=== PATIENT | female | born 1980 | race Caucasian/White ===

== ENCOUNTER 2024-11-26 18:11 | Emergency (ER) | payer OTHER, SELFPAY ==
--- OUTSIDE RECORDS SUMMARY | 2024-11-26 18:13 | XMS_ITS | Clinical Summary ---
Author Organization [facility] [address] [place] [id number] Care Team Providers Care Seaming Machine Operator Name Role Phone Ferdinand Wiggins MD Primary Care Provider Leonid Lazar MD Unavailable [phone] Allergies Active Allergy Reactions Criticality Noted Date Comments Erythromycin Hives Medium 12/02/2018 Medications acetaminophen (TYLENOL) 500 mg tablet Take 500 mg by mouth every 6 (six) hours as needed for pain Active cetirizine (ZyrTEC) 10 mg tablet Take 10 mg by mouth 2 (two) times a day Active pantoprazole DR (PROTONIX) 40 mg EC tablet Take 1 tablet (40 mg total) by mouth daily 30 tablet 2 01/31/2020 Active ibuprofen (ADVIL,MOTRIN) 600 mg tablet Take 1 tablet (600 mg total) by mouth every 6 (six) hours as needed for pain Take with food. 20 tablet 05/13/2020 Active Active Problems Problem Noted Date Diagnosed Date Gastroesophageal reflux disease 01/31/2020 Overview (01/31/2020): Added automatically from request for surgery [id number] GERD (gastroesophageal reflux disease) 0 Assessment & Plan (01/31/2020 3:59 PM DETACHER): -Stop famotidine. Start pantoprazole 40mg daily. Use TUMS prn for breakthrough symptoms. -Discussed GERD diet and given handout on this to follow. -Will schedule EGD Assessment & Plan (12/01/2019 3:23 PM CDT): - onset in early high school - currently on pepcid 20 mg BID at this time - heart burn is getting worse lately despite using - she has been using peptobismol and tums several times a week on top of this for the past 6 month - last endoscopy was back in [id number] which apparently did not show abnormal fidnings - never travelled outside the country - exacerbated with certain types of foods - she drinks a lot of sweet tea and soda caffine containing - taken NSAID - ibuprofen 800mg 2 tablets 3 times a day Hx of gout 12/01/2019 Assessment & Plan (12/01/2019 3:09 PM CDT): - back in year 2000, she had a foot pain - no other flare ups since then Seasonal allergies 12/01/2019 Assessment & Plan (12/01/2019 3:08 PM CDT): - currently on Zyrtec 10mg twice daily - works well for her Status post cholecystectomy 12/01/2019 Assessment & Plan (12/01/2019 3:11 PM CDT): - cholecystectomy in 2008, after having stones DDD (degenerative disc disease), lumbar 12/01/19 Assessment & Plan (12/01/2019 3:38 PM CDT): - hx of bulging disc in L4-L5, degenerative disc disease - she was then sent to pain management, s/p ablations and steroid injections in back - she has not been seen since 2016 - patient to bring back records of MRI and pain management - she was in the she had a fall and a traumatic experience which is what though to be the cause - uses tylenol and ibuprofen for pain control - unfortunately she is using a lot of NSAIDs on a daily basis for the last days - she uses about 3000 mg of tylenol on average, and 5000 mg of tylenol on painful days Class 2 obesity due to exces s calories without serious comorbidity with body mass index (BMI) of 36.0 to 36.9 in adult 12/01/2019 Encounter for long-term (current) use of NSAIDs 12/01/2019 Assessment & Plan (01/31/2020 3:54 PM DETACHER): -Reduce amount of NSAID's used. -Pt says she has an appointment with pain management in the near future. Claustrophobia 12/01/2019 Assessment & Plan (12/01/2019 3:32 PM CDT): - has claustrophobia, having a very hard time with wearing her masks, face covers Resolved Problems Problem Noted Date Diagnosed Date Resolved Date Class 2 obesity due to exces s calories without serious comorbidity with body mass index (BMI) of 36.0 to 36.9 in adult 01/31/2020 Immunizations Immunization Administration Dates Next Due Influenza, Unspecified 12/01/2019(Deferr ed: Patient Refused),12/15/2018(Deferred: Patient Refused) Surgical History Surgery Date Site/Laterality Comments HYSTERECTOMY 03/17/2019 - 03/16/2020 polyp, endometriosis CHOLECYSTECTOMY 03/17/2008 - 03/16/2009 TUBAL LIGATION 03/17/2004 - 03/16/2005 Medical History Medical History Date Comments Allergic Gout 2000 GERD (gastroesophageal reflux disease) Family History Medical History Relation Name Comments Hyperlipidemia Father Breast cancer Maternal Great-Grandmother Hypertension Mother Breast cancer Mother's Sister Bone cancer Paternal Grandfather Lung cancer Paternal Grandfather No Known Problems Sister Relation Name Status Comments Father Alive Maternal Great-Grandmother Mother Alive Mother's Sister Paternal Grandfather Sister Alive Social History Tobacco Use Types Packs/Day Years Used Date Smoking Tobacco: Former Cigarettes 0.1 2 0 03/17/2002 - 03/17/2004 Smokeless Tobacco: Never Alcohol Use Standard Drinks/Week Comments Yes 0 (1 standard drink = 0.6 oz pur e alcohol) social AUDIT-C Answer Date Recorded Q1: How often do you have a drink containing alc ohol? 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 Not on file Not on file Not on fi le Obstetrics History Para Term AB IAB SAB Ectopic Multiple Livin g Live Births 3 3 3 Date Outcome GA Total Labor Labor/2nd/3rd Weight Sex Type Anes PTL Zenaida A1 A5 Name Clin Term Term Term Last Filed Vital Signs Vital Sign Reading Time Taken Comments Blood Pressure 124/85 05/13/2020 10:15 PM DETACHER Pulse 80 05/14/2020 12:00 AM DETACHER Temperature 36.6 C (97.8 F) 05/13/2020 10:11 PM DETACHER Respiratory Rate 18 05/13/2020 10:11 PM DETACHER Oxygen Saturation 98% 05/14/2020 12:00 AM DETACHER Inhaled Oxygen Concentration - - Weight 90.7 kg (200 lb) 05/13/2020 10:11 PM DETACHER Height 172.7 cm (5' 8) 05/13/2020 10:11 PM DETACHER Body Mass Index 30.41 05/13/2020 10:11 PM DETACHER Plan of Treatment Not on file Insurance [facility] H[facility]PPO Address: [facility] [address] [place] [address] [employer] H[facility]/PPO Address: [place] [address] Advance Directives For more information, please contact: [phone] * Full Code (Latest Code Status on File) Date Activated Date Inactivated Comments 02/14/2020 8:15 AM 02/14/2020 1:56 PM * Full Code Date Activated Date Inactivated Comments 02/14/2020 8:15 AM 02/14/2020 8:15 AM Care Teams Seaming Machine Operator Relationship Specialty Start Date End Date Ferdinand Wiggins MD PCP - General Family Medicine 12/01/19 Leonid Lazar MD Referring Physician Obstetrics and Gynecology 12/01/19
[2024-11-26 18:17] VITALS: BP 131/93; PULSE 87; RESP 16; TEMP 36.5; O2SAT 100
--- NOTE | 2024-11-26 18:25 | ED.GENADULT ---
HPI - General Adult General Chief complaint: Skin/Abscess/Foreign Body Stated complaint: right side face swelling Time Seen by Provider: 11/26/24 18:25 Source: patient Mode of arrival: ambulatory History of Present Illness HPI narrative: 44-year-old female presented for complaint of right facial swelling. Onset this morning. Denies any associated dental pain but states she has poor dentition throughout and broken teeth. says the swelling has improved. Took Benadryl as she was concerned for an allergic reaction. Denies lip, tongue, or throat swelling, shortness of breath or wheezing. Denies changes to soap, detergent, lotion, or any other exposures. Related Data Allergies Allergy/AdvReac Type Severity Reaction Status Date / Time erythromycin base Allergy Unknown HIVES, DRY Verified 11/26/24 18:21 DIPIKA Review of Systems Review of Systems: CONSTITUTIONAL: Denies body aches, fever, chills ENT: Denies rhinorrhea, congestion, sore throat, or otalgia. Reports facial swelling CARDIOVASCULAR: Denies chest pain, palpitations RESPIRATORY: Denies cough or dyspnea. SKIN: Denies rash, itching, or wounds. MUSCULOSKELETAL: Denies myalgia. NEUROLOGIC: Denies headache, numbness, tingling, or weakness. PMFSH Comments At time of signature, I have reviewed and agree with nursing past medical, surgical, social and family history unless otherwise noted. Please see nursing chart for further information. There is no relevant family history pertinent to the presenting complaint Exam Narrative: GENERAL: well-appearing, no acute distress. HEAD: Normocephalic, atraumatic. EYES: EOMI. No redness or drainage. Conjunctivae normal. ENT: mild Right facial swelling to cheek, no erythema or warmth. mildly tender with palpation to the right maxillary sinus area. dental abscess location of #4, nontender, no gum swelling. poor dentition throughout with multiple broken teeth. Mucous membranes pink and moist. TMs normal bilaterally. Throat normal. Uvula midline. NECK: Normal AROM. No lymphadenopathy. CHEST: No respiratory distress. Clear to auscultation. HEART: Regular rate and rhythm. No murmur appreciated. SKIN: Warm, dry, no rash. Normal skin turgor. NEURO: No focal deficits. Alert and oriented x3. Gait steady. Course Course Emergency Course: Patient is aware of diagnosis, understands and agrees to treatment plan. Anticipatory guidance given. Patient agrees to follow-up as directed and is aware of reasons to seek care at the emergency department. Portions of this record may have been created with voice recognition software Level of Care: Express Care Visit Vital Signs Vital signs: Vital Signs Temperature 97.7 F 11/26/24 18:17 Pulse Rate 87 11/26/24 18:17 Respiratory Rate 16 11/26/24 18:17 Blood Pressure 131/93 H 11/26/24 18:17 Pulse Oximetry 100 11/26/24 18:17 Oxygen Delivery Room Air 11/26/24 18:17 Temperature 97.7 F 11/26/24 18:17 Pulse Rate 87 11/26/24 18:17 Respiratory Rate 16 11/26/24 18:17 Blood Pressure 131/93 H 11/26/24 18:17 Pulse Oximetry 100 11/26/24 18:17 Oxygen Delivery Room Air 11/26/24 18:17 Medical Decision Making MDM Narrative Medical decision making narrative: Discussed physical exam findings c/w dental abscess. Advised supportive measures and signs/symptoms to go to the ER. Pt is appropriate for outpt treatment and f/u. Differential Diagnosis Differential Diagnosis: dentalgia, dental abscess, cellulitis, allergic reaction Vital Signs Vital Signs: Vital Signs Temperature 97.7 F 11/26/24 18:17 Pulse Rate 87 11/26/24 18:17 Respiratory Rate 16 11/26/24 18:17 Blood Pressure 131/93 H 11/26/24 18:17 Pulse Oximetry 100 11/26/24 18:17 Oxygen Delivery Room Air 11/26/24 18:17 Temperature 97.7 F 11/26/24 18:17 Pulse Rate 87 11/26/24 18:17 Respiratory Rate 16 11/26/24 18:17 Blood Pressure 131/93 H 11/26/24 18:17 Pulse Oximetry 100 11/26/24 18:17 Oxygen Delivery Room Air 11/26/24 18:17 Discharge Plan Discharge Clinical Impression: Dental abscess Patient Disposition: Home Condition: Stable Instructions: Antibiotic Form, Dental Abscess (ED) Additional Instructions: Take antibiotic as directed May apply ice to the face to reduce swelling Gentle brushing and flossing. Rinse mouth with warm salt water at least 2 times a day. Alternate Tylenol and ibuprofen as needed for pain Follow-up with the dentist as soon as possible--see the list provided go to the ER for worsening symptoms or concerns Patient Language: Venezuelan Prescriptions: New amoxicillin-pot clavulanate 875-125 mg tablet 1 tablet PO Q12H 7 Days Qty: 14 0RF Follow-up/Referrals: PHYSICIAN,MULTIPLE LAUNCH ROCKET SYSTEM CREWMEMBER [Primary Care Provider, Internal Medicine] Time of Disposition: 18:30
== END 2024-11-26 18:37 | disposition home or self-care (01) ==
PROVIDERS: Emergency Provider Nurse Practitioner Family
DX: K04.7 Periapical abscess without sinus (principal)
CPT/HCPCS: 99203; G0463